=== PATIENT | female | born 1975 | race Caucasian/White ===

== ENCOUNTER 2024-05-07 01:06 | Day surgery (SDC) | payer OTHER, SELFPAY ==
[2024-04-27 10:52] VITALS: BMI 44.2
--- OUTSIDE RECORDS SUMMARY | 2024-05-07 01:09 | XMS_ITS | Clinical Summary ---
Author Organization [facility] Address [address] [place] [address] Care Team Providers Care Residence Director Name Role Phone Sebastián Og Primary Care Provider Allergies No known active allergies Medications semaglutide (Ozempic) 1 mg/dose (2 mg/1.5 mL) pen injector injection Inject 1 mg under the skin every 7 days Active citalopram (CeleXA) 20 mg tablet Take 1 tablet (20 mg total) by mouth daily Active cyclobenzaprine (FLEXERIL) 10 mg tablet Take 1 tablet (10 mg total) by mouth nightly for 10 days 10 tablet 05/01/2024 05/11/19 25 Active lidocaine (LIDODERM) 5 % Place 1 patch on the skin daily Remove & discard patch within 12 hours or as directed by . 30 patch 05/01/2024 05/31/19 25 Active Active Problems Problem Noted Date Diagnosed Date Migraine 12/03/2022 Encounters Date Type Department Care Team Description 05/01/2024 12:26 PM PANTOGRAPH TRANSFERRER - 05/01/2024 2:46 PM PANTOGRAPH TRANSFERRER Emergency [facility] Emergency Department [address] [place] [address] Neck pain (Primary Dx) Discharge Disposition: Discharge to home or self care from Last 3 Months Surgical History Surgery Date Site/Laterality Comments SECTION Medical History Medical History Date Comments Migraine Family History Medical History Relation Name Comments Liver cancer Father COPD Mother Relation Name Status Comments Father Mother Social History Tobacco Use Types Packs/Day Years Used Date Smoking Tobacco: Never Tobacco Cessation:Counseling Given: Not Answered PHQ-2 Answer Date Recorded PHQ-2 Total Score (If total score is 3 or more points, staff should administer the PHQ-9) 0 06/21/2023 Personal Safety Answer Date Recorded Have you ever been in or are you currently in a harmful physical or emotional relationship or is someone making you feel afraid or unsafe? Denies 05/01/2024 Comments No Sex and Gender Information Value Date Recorded Sex Assigned at Not on file Legal Sex Female 4:09 AM PANTOGRAPH TRANSFERRER Gender Identity Not on file Sexual Orientation Not on file Obstetrics History Para Term AB IAB SAB Ectopic Multiple Livin g Live Births 3 1 1 2 1 1 1 Date Outcome GA Total Labor Labor/2nd/3rd Weight Sex Type Anes PTL Kay A1 A5 Name Clin SAB AB 2000 Term 3.544 kg (7 lb 13 oz) F C-Sec tion Living Last Filed Vital Signs Vital Sign Reading Time Taken Comments Blood Pressure 171/87 05/01/2024 2:45 PM PANTOGRAPH TRANSFERRER Pulse 60 05/01/2024 2:45 PM PANTOGRAPH TRANSFERRER Temperature 36.3 ??C (97.3 ??F) 05/01/2024 12:[address] Respiratory Rate 16 05/01/2024 2:45 PM PANTOGRAPH TRANSFERRER Oxygen Saturation 98% 05/01/2024 2:45 PM PANTOGRAPH TRANSFERRER Inhaled Oxygen Concentration - - Weight 113.4 kg (250 lb) 05/01/2024 12:22 PM PANTOGRAPH TRANSFERRER Height 160 cm (5' 3 ) 05/01/2024 12:22 PM PANTOGRAPH TRANSFERRER Body Mass Index 44.29 05/01/2024 12:22 PM PANTOGRAPH TRANSFERRER Plan of Treatment Health Maintenance Due Date Last Done Comments Colon Cancer Screening-Colonoscopy 1973 Hepatitis C Screening 1973 DTaP/Tdap/Td Vaccine (1 - Tdap) 1984 Hepatitis B Screening 12/13/1991 Covid-19 Vaccine (3 - 2023-2 5 season) 2023 08/18/2020, 07/21/2020 Influenza Vaccine (#1) 2023 02/07/2017 Zoster Vaccine (1 of 2) 12/13/2023 Breast Cancer Screening-Mammogram 01/13/2024 01/12/2023 Cervical Cancer Screening 06/20/20242023, 06/21/2023 Depression Screening 06/20/2024 06/21/2023 Regular Well Visit/Exam 18-64 06/20/2024 06/21/2023 Pneumococcal vaccine <65 Aged Out No longer eligible based on patient's age to complete this topic Procedures Procedure Name Priority Date/Time Associated Diagnosis Comments XR SPINE CERVICAL COMPLETE 4 OR 5 VW ED 05/01/2024 1:33 PM PANTOGRAPH TRANSFERRER URINALYSIS AND REFLEX TO MICROSCOPIC AND CULTURE STAT 05/01/2024 1:17 PM PANTOGRAPH TRANSFERRER HIGH RISK HPV DNA DETECTION WITH GENOTYPING Routine 06/21/2023 4:15 PM CDT Well woman exam SCREENING MAMMOGRAM BILATERAL W NORMAN Schedule Routine, Read Routine (OP Routine) 01/12/2023 1:12 PM CDT Screening mammogram, encounter for from Last 3 Months or Most Recently Relevant to Health Maintenance Results * XR Spine Cervical Complete 4 or 5 Views (05/01/2024 1:33 PM PANTOGRAPH TRANSFERRER) Anatomical Region Laterality Modality Spine N/A Computed Radiogr aphy 05/01/2024 1:47 PM PANTOGRAPH TRANSFERRER Narrative 05/01/2024 1:48 PM PANTOGRAPH TRANSFERRER EXAM DESCRIPTION: XR SPINE CERVICAL COMPLETE 4 OR 5 VW REASON FOR STUDY: upper back pain ?? Pt to ED for c/o neck pain, bilateral shoulder pain and upper back pain after moving last weekend. Pt reports pain is worse the last few days and she had multiple episodes of incontinence. ?? Pain down left side of neck ? TECHNIQUE: 5 ??radiographic view(s) of the ??cervical ??spine. COMPARISON: None FINDINGS: There is no definite evidence of acute fracture or subluxation involving the cervical spine. ??There is straightening of the normal cervical lordotic curvature, which may be related to muscle spasms. ??There are large bridging endplate osteophytes noted, which is likely related to diffuse idiopathic skeletal hyperostosis. ??There are multilevel degenerative changes of the cervical spine with disc space narrowing, endplate osteophytosis, and uncovertebral arthropathy, which causes varying degrees of neural foraminal narrowing. ??The visualized paravertebral soft tissues are grossly unremarkable. IMPRESSION: Multilevel cervical spondylosis without definite evidence of acute fracture or subluxation. THIS IS AN ELECTRONICALLY VERIFIED FINAL REPORT 05/01/2024 1:48 PM - Electronically signed by ??Kelechi Castellanos D.O. PS: PS D: ??05/01/2024 1:48 PM T: ??05/01/2024 1:48 PM Report ID: [id number] Reading Location: ??[id number] Procedure Note Kelechi Castellanos, DO - 05/01/2024 EXAM DESCRIPTION: XR SPINE CERVICAL COMPLETE 4 OR 5 VW REASON FOR STUDY: upper back pain Pt to ED for c/o neck pain, bilateral shoulder pain and upper back painafter moving last weekend. Pt reports pain is worse the last few days and shehad multiple episodes of incontinence. Pain down left side of neck TECHNIQUE: 5 radiographic view(s) of the cervical spine. COMPARISON: None FINDINGS: There is no definite evidence of acute fracture or subluxation involvingthe cervical spine. There is straightening of the normal cervical lordotic curvature, which may be related to muscle spasms. There are largebridging endplate osteophytes noted, which is likely related to diffuse idiopathic skeletal hyperostosis. There are multilevel degenerative changes of the cervical spine with disc space narrowing, endplate osteophytosis, and uncovertebral arthropathy, which causes varying degrees of neuralforaminal narrowing. The visualized paravertebral soft tissues are grossly unremarkable. IMPRESSION: Multilevel cervical spondylosis without definite evidence of acutefracture or subluxation. THIS IS AN ELECTRONICALLY VERIFIED FINAL REPORT 05/01/2024 1:48 PM - Electronically signed by Kelechi Castellanos D.O. PS: PS Report ID: [id number] Reading Location: [id number] Jason Puentes NP IMG XR PROCEDURES Final Res ult * (ABNORMAL) Urinalysis reflex to microscopic and culture Urine (05/01/2024 1:17 PM PANTOGRAPH TRANSFERRER) Color, ur Light-[place] Clarity, ur Turbid(A) Clear [facility] (ANNA) Specific gravity, ur 1.018 1.003 - 1.030 [facility] ([facility]) pH, urine 7.0 [facility] ([facility]) Comment: Interpretive Data ? Urine pH is affected by diet, medications, systemic acid-base disturbances, and renal tubular function. ??pH may affect urinary stone formation. ??For example, urine pH below 6.0 may help reduce the tendency for calcium phosphate stones and pH greater than 6.0 may reduce the tendency for uric acid stone formation. Source: [facility] [employer] Current Interpretive Data was last revised on 2017 Protein, ur ql Negative Negative [facility] ([place]) Glucose, ur ql Negative Negative [facility] ([facility]) Ketones, ur Negative Negative [facility] ([place]) Bilirubin, ur Negative Negative [facility] ([place]) Blood, ur Negative Negative [facility] ([place]) Urobilinogen, ur <2.0 <2.0 mg/dL [facility] ([place]) Nitrite, ur Negative Negative [facility] (AN[place]) Leukocyte esterase, ur Negative Negative [facility] ([facility]) UA reflex comment Reflex conditions for microscopic UA and culture not met. [facility] ([facility] Urine 05/01/2024 1:17 PM PANTOGRAPH TRANSFERRER 05/01/2024 1:22 PM PANTOGRAPH TRANSFERRER us Jason Puentes NP LAB MICROBIOLOGY - GENERAL ORDERABLES Final Result [facility] ([facility] [address] [facility] Department [place] [address] * High Risk HPV DNA Detection with Genotyping (Molecular component) (06/21/2023 4:15 PM CDT) HPV HR 16 Not Detected Not Detected HPV HR 18 Not Detected Not Detected [facility] HPV HR Non 16/18 Not Detected Not Detected [facility] Comment: Interpretive Data Nucleic acid amplification for detection of high-risk Human Papilloma virus (HPV) is performed by the [place] Kandace 4800 HPV test, which specifically detects high-risk HPV-16, 18, 31, 33, 35, 39, 45, 51, 52, 56, 58, 59, 66, and 68 genotypes. ??This assay has been approved by the [place] Food and Drug Administration for detection of HPV in cervical specimens collected by a physician using an endocervical brush/spatula or cervical broom and placed in the ThinPrep Pap Test PreservCyt collection containers. ??The performance characteristics of this test have been verified by the [facility]. Correlate with separately reported cytology results, as applicable. Interpretive data last revised 22 Endocervical 06/21/2023 4:15 PM CDT 06/21/2023 7:47 PM CDT Narrative [facility] - 06/25/2023 6:44 PM CDT Clinical history and diagnosis->no abnl Number of vials->1 Testing type->Screening Last menstrual period (date if known)->04/27/23 Menstrual status->Perimenopausal Olga Mayo MD LAB BODY FLUIDS AND STO OLS ORDERABLES Final Result [facility] [address] Department [place] [address] * (ABNORMAL) Screening Mammogram Bilateral W Norman (01/12/2023 1:12 PM CDT) Anatomical Region Laterality Modality Breast Bilateral Mammography 01/28/2023 8:31 AM CDT Impressions 01/28/2023 8:31 AM CDT 2 focal asymmetries and 2 groups of calcifications in the left breast as well as 2 focal asymmetries in the right breast. ??Recommend bilateral diagnostic mammogram and possibly sonogram. BI-RADS: 0 - Additional imaging evaluation is necessary. Electronically signed by: Spring Silva M.D. Narrative 01/28/2023 8:31 AM CDT EXAMINATION: SCREENING MAMMOGRAM BILATERAL W NORMAN ORDERING HEALTHCARE PROVIDER: SELF SCREENING MAMMOGRAM HISTORY: Routine screening mammography. COMPARISON: ??None TECHNIQUE: CC and MLO views of the bilateral breasts were obtained with digital technique using breast tomosynthesis with C view. Computer aided detection was utilized. FINDINGS: DENSITY: There are scattered fibroglandular elements in the bilateral breasts. BREASTS: Left breast: There are focal asymmetry in the upper outer mid left breast, focal asymmetry in the lower inner mid left breast, and 2 groups of calcifications in the upper inner anterior to mid left breast. Right breast: There are focal asymmetry in the upper inner mid right breast and focal asymmetry in the lower outer anterior right breast. us Self Screening Mammogram IMG MAMMO PROCEDURES Fi nal Result from Last 3 Months or Most Recently Relevant to Health Maintenance Insurance IDPA [facility] Care Teams Residence Director Relationship Specialty Start Date End Date Sebastián Og PA [address] [facility] [address] [place] [address] PCP - General Physician Concrete Block Mason 07/01/23
--- OUTSIDE RECORDS SUMMARY | 2024-05-07 01:09 | XMS_ITS | CONTINUITY OF CARE DOCUMENT ---
Author Name caseymonica caseymonica Address Unknown Organization [facility] Address [address] [place] [address] Phone [phone] Care Team Providers Care Convolute Tube Winder Name Role Phone Marissa Jacinto MD Unavailable [phone] SCOUT BASSETT Unavailable SCOUT BASSETT Unavailable PROBLEMS Condition Status Date Provider Notes Cardiovascular screening completed - Marissa Jacinto MD Family History of CVA or Stroke: active ? Maxi Jacinto MD Obesity nl tsh , elevated tg active Marissa Jacinto MD FAMILY HISTORY OF HEART DISEASE active Lloyd Jacinto MD CHEST PAINnl echo and stress nuc 08/24 active Marissa Jacinto MD Edema-BLE active Marissa Jacinto MD Snoring mild arnel active Marissa Jacinto MD Venous insufficiency active Marissa Jacinto MD ENCOUNTERS Date Type Provider Location Encounter Diag nosis - In-person encounter Office Visit Marissa Jacinto MD [place] [facility] Cardiovascular screeningObesity nl tsh , elevated tgCHEST PAINnl echo and stress nuc 08/24Snoring mild osaVenous insufficiency - In-person encounter Office Visit Marissa Jacinto MD [place] [facility] Family History of CVA or Stroke:Obesity nl tsh , elevated tgFAMILY HISTORY OF HEART DISEASECHEST PAINnl echo and stress nuc 08/24Edema-BLESnoring mild arnel VITAL SIGNS Date Observation Value Provider Body Mass Index (Ratio) 47.47 kg/m2 Lloyd Jacinto MD blood pressure, cuff size regular Cy sandro Iyer blood pressure, diastolic 80 mm[Hg] Cy sandro Iyer blood pressure, systolic 130 mm[Hg] Shannen Iyer oxygen saturation, oximetry 97 % Gracy Iyer respiratory rate E&M 18 /min Gracyanh Iyer pulse rate 96 /min Gracy ames weight E&M 268 [lb_av] Gracy ames height E&M 63 [in_i] Gracy ames Body Mass Index (Ratio) 48.00 kg/m2 Lloyd Jacinto MD blood pressure, diastolic 84 mm[Hg] [facility], systolic 118 mm[Hg] Kenya levin [place] oxygen saturation, oximetry 98 % [facility] respiratory rate E&M 16 /min [facility] pulse rate 88 /min [facility] weight E&M 271 [lb_av] [facility] blood pressure, resting No [facility] height E&M 63 [in_i] [facility] ALLERGIES No Known Drug Allergies RESULTS Date Observation Value Provider Reference Range Interpretation Location 4 thyroid stimulating hormone, serum 1.540 u[IU]/mL [facility] 0.450-4.500 4 alanine aminotransferase (SGPT), serum 26 1/L [facility] 0-32 4 aspartate aminotransferase (SGOT), serum 21 1/L [facility] 0-40 4 alkaline phosphatase, serum 83 1/L [facility] 39-117 4 bilirubin, serum, total 0.4 mg/dL [facility] 0.0-1.2 4 albumin/globulin ratio, serum 1.4 [facility] 1.2-2.2 4 globulin, serum 3.0 [facility] 1.5-4.5 4 albumin, serum 4.3 g/dL [facility] 3.5-5.5 4 protein, total, serum 7.3 g/dL [facility] 6.0-8.5 4 calcium, serum 9.2 mg/dL [facility] 8.7-10.2 4 carbon dioxide, venous blood 25 mmol/L [facility] 20-29 4 chloride, serum 102 mmol/L [facility] 96-106 4 potassium, serum 4.2 mmol/L [facility] 3.5-5.2 4 sodium, serum 142 mmol/L [facility] [phone]/05/2 4 urea nitrogen/creatinine ratio, serum 10 [facility] 9-23 4 eGFR if 83 mL/min/{1 .73_m2} [facility] >59 4 eGFR if not 72 mL/min/{1 .73_m2} [facility] >59 4 creatinine, serum 0.96 mg/dL [facility] 0.57-1.00 4 urea nitrogen, blood 10 mg/dL [facility] 6-24 4 blood glucose, random 82 mg/dL [facility] 65-99 4 hemoglobin A1C, blood, as % of total hemoglobin 5.5 % [facility] 4.8-5.6 4 lipoprotein, beta, serum, point, quantitative, calculated 73 mg/dL [facility] 0-99 4 very low density lipoproteins 45 mg/dL [facility] 5-40 High 4 HDL cholesterol, serum 41 mg/dL [facility] >39 4 triglyceride, serum, random 223 mg/dL [facility] 0-149 High 4 cholesterol, serum 159 mg/dL [facility] [phone]/05/2 4 basophil count, absolute 0.1 x10E3/uL [facility] 0.0-0.2 4 Eosinophil Absolute Count 0.4 X10E3/UL [facility] 0.0-0.4 4 monocyte count, blood, automated 0.5 X10E3/UL [facility] 0.1-0.9 4 lymphocyte count, blood, automated 2.8 X10E3/UL [facility] 0.7-3.1 4 Absolute Neutrophils 5.0 X10E3/UL [facility] 1.4-7.0 4 basophils as percent of blood leukocytes 1 % [facility] Not Estab. 4 eosinophils as percent of blood leukocytes 5 % [facility] Not Estab. 4 monocytes as percent of blood leukocytes 6 % [facility] Not Estab. 4 lymphocytes as percent of blood leukocytes 31 % [facility] Not Estab. 4 neutrophils as percent of blood leukocytes 57 % [facility] Not Estab. 4 platelet count 281 X10E3/UL [facility] [phone]/05/2 4 red blood cell distribution width 15.2 % [facility] 12.3-15.4 4 mean corpuscular hemoglobin concentration, RBC 32.3 G/DL [facility] 31.5-35.7 4 mean corpuscular hemoglobin, RBC 25.3 pg [facility] 26.6-33.0 Low 4 mean corpuscular volume, RBC 78 fL [facility] 79-97 Low 4 hematocrit, blood 38.7 % [facility] 34.0-46.6 4 hemoglobin, blood 12.5 g/dL [facility] 11.1-15.9 4 erythrocyte (RBC) count 4.95 X10E6/UL [facility] 3.77-5.28 4 leukocyte count, blood 8.9 X10E3/UL [facility] 3.4-10.8 HISTORY OF MEDICATION USE No Known Medication SOCIAL HISTORY Date Observation Value Provider social history reviewed E&M revi ewed - no changes required Marissa Jacinto MD smoking status Never smoker Gracy Sumit goldman social history E&M S moking History: Hernan akbar has never smoked. Marissa Jacinto MD social history reviewed E&M revi ewed - no changes required Marissa Jacinto MD number of grandchildren Marissa Jacinto MD Neymar Mcclure smoking status Never smoker Ismael washington FAMILY HISTORY Family Member Condition Father Family History of Hy pertension: Father Family History of Hy perlipidemia: Father Family History of Di abetes: Father Family History of CV A or Stroke: Father Family History of Co ngestive Heart Failure: Father Family History of Co ronary Artery Disease: Mother Family History of Co ronary Artery Disease: INSURANCE PROVIDERS Payer name Policy type / Coverage type [place] red republican ID [employer] Other [id number] HEALTHCARE AND FAMILY SERVICES Medicaid 1 [id number] ADVANCE DIRECTIVES Name Date DISCUSSED - NO DECISION MADE TREATMENT PLAN Date Name Performer Cardiology follow up Marissa hoyos MD Cardiology follow up Marissa hoyos MD Cardiology follow up Marissa hoyos MD Cardiology follow up Marissa hoyos MD Cardiology Marissa Jacinto MD Cardiology Marissa Jacinto MD Cardiology Marissa Jacinto MD Cardiology Marissa Jacinto MD Cardiology Marissa Jacinto MD Date Name TSH, 3RD GENERATION W/REFLEX TO FT4 LIPID PANEL HEMOGLOBIN A1c CBC (H/H, RBC, INDIC ES, WBC, PLT) BASIC METABOLIC PANE L W/EGFR COMPREHENSIVE METABO LIC PANEL, W/EGFR Venous Doppler Bilat eral LE - Reflux Complete Echo Stress Exercise Card iolite Sleep Study Home HISTORY OF PROCEDURES Procedure Date Procedure Name Provider Procedure Notes S tatus Cardiolite, 2 units Marissa Jacinto MD completed SPECT Images Dario Garcia MD com pleted Stress EKG Candido Pennington MD completed EKG Marissa Jacinto MD completed
--- OUTSIDE RECORDS SUMMARY | 2024-05-07 01:09 | XMS_ITS | Referral Summary ---
Author Organization [facility] Address [address] [place] [address] Care Team Providers Care Net Making Supervisor Name Role Phone Sebastián Og Primary Care Provider Encounters Date Type Department Care Team Description 05/01/2024 12:26 PM CONSTRUCTION REPRESENTATIVE - 05/01/2024 2:46 PM CONSTRUCTION REPRESENTATIVE Emergency [facility] Emergency Department [address] [place] [address] Neck pain (Primary Dx) Discharge Disposition: Discharge to home or self care from Last 3 Months Allergies No known active allergies Medications semaglutide [...] within 12 hours or as directed by MD. 30 patch 05/01/2024 05/31/19 25 Active Active Problems Problem Noted Date Diagnosed Date Migraine 12/03/2022 Social History Tobacco Use Types Packs/Day Years [...] on file Legal Sex Female 4:09 AM CONSTRUCTION REPRESENTATIVE Gender Identity Not on file Sexual Orientation Not on file Last Filed Vital Signs Vital Sign Reading Time Taken Comments Blood Pressure 171/87 05/01/2024 2:45 PM CONSTRUCTION REPRESENTATIVE Pulse 60 05/01/2024 2:45 PM CONSTRUCTION REPRESENTATIVE Temperature 36.3 ??C (97.3 ??F) 05/01/2024 12:[address] Respiratory Rate 16 05/01/2024 2:45 PM CONSTRUCTION REPRESENTATIVE Oxygen Saturation 98% 05/01/2024 2:45 PM CONSTRUCTION REPRESENTATIVE Inhaled Oxygen Concentration - - Weight 113.4 kg (250 lb) 05/01/2024 12:22 PM CONSTRUCTION REPRESENTATIVE Height 160 cm (5' 3 ) 05/01/2024 12:22 PM CONSTRUCTION REPRESENTATIVE Body Mass Index 44.29 05/01/2024 12:22 PM CONSTRUCTION REPRESENTATIVE Plan of Treatment Not on file Procedures Procedure Name Priority Date/Time Associated Diagnosis Comments XR SPINE CERVICAL COMPLETE 4 OR 5 VW ED 05/01/2024 1:33 PM CONSTRUCTION REPRESENTATIVE URINALYSIS AND REFLEX TO MICROSCOPIC AND CULTURE STAT 05/01/2024 1:17 PM CONSTRUCTION REPRESENTATIVE HIGH RISK HPV DNA DETECTION WITH GENOTYPING Routine 06/21/2023 4:15 PM CDT Well woman exam SCREENING MAMMOGRAM BILATERAL W NORMAN Schedule Routine, Read Routine (OP Routine) 01/12/2023 1:12 PM CDT Screening mammogram, encounter for from Last 3 Months or Most Recently Relevant to Health Maintenance Results * XR Spine Cervical Complete 4 or 5 Views (05/01/2024 1:33 PM CONSTRUCTION REPRESENTATIVE) Anatomical Region Laterality Modality Spine N/A Computed Radiogr aphy 05/01/2024 1:47 PM CONSTRUCTION REPRESENTATIVE Narrative 05/01/2024 1:48 PM CONSTRUCTION REPRESENTATIVE EXAM DESCRIPTION: XR SPINE CERVICAL COMPLETE 4 [...] PM T: ??05/01/2024 1:48 PM Report ID: [id number] Reading Location: ??[id number] Procedure Note Kelechi Castellanos, DO - 05/01/2024 [...] Kelechi Castellanos D.O. PS: PS Report ID: [id number] Reading Location: [place] [address] Jason Puentes NP IMG XR PROCEDURES Final Res ult * (ABNORMAL) Urinalysis reflex to microscopic and culture Urine (05/01/2024 1:17 PM CONSTRUCTION REPRESENTATIVE) Color, ur Light-[place] Clarity, ur Turbid(A) Clear CERNER A [facility] [...] tendency for uric acid stone formation. Source: [facility] [employer] Current Interpretive Data was last revised on [...] for microscopic UA and culture not met. [facility] ([facility]NA) Urine 05/01/2024 1:17 PM CONSTRUCTION REPRESENTATIVE 05/01/2024 1:22 PM CONSTRUCTION REPRESENTATIVE us Jason Puentes NP LAB MICROBIOLOGY - GENERAL ORDERABLES Final Result [facility] (ANNA) [address] [facility] Department [place] [address] * High Risk HPV DNA Detection with Genotyping (Molecular component) (06/21/2023 4:15 PM CDT) HPV HR 16 Not Detected Not Detected HPV HR 18 Not Detected Not Detected [facility] HPV HR Non 16/18 Not Detected Not Detected [facility] Comment: Interpretive Data Nucleic acid amplification for [...] this test have been verified by the [facility]. Correlate with separately reported cytology results, as applicable. Interpretive data last revised 22 Endocervical 06/21/2023 4:15 PM CDT 06/21/2023 7:47 PM CDT Narrative [facility] - 06/25/2023 6:44 PM CDT Clinical history and diagnosis->no abnl Number of vials->1 Testing type->Screening Last menstrual period (date if known)->04/27/23 Menstrual status->Perimenopausal us Olga Mayo MD LAB BODY FLUIDS AND STO OLS ORDERABLES Final Result [facility] [address] Department [place] [address] * (ABNORMAL) Screening Mammogram Bilateral W Norman [...] Recently Relevant to Health Maintenance Insurance IDPA [facility] [place] [id number] Care Teams Net Making Supervisor Relationship Specialty Start Date End Date Sebastián Og PA [address] [address] PCP - General Physician Scalping Machine Operator 07/01/23
[2024-05-07 12:28] VITALS: BP 161/87; PULSE 74; RESP 16; TEMP 36.3; O2SAT 97; BMI 48.3
--- NOTE | 2024-05-07 12:29 | P.PNAN_ITS ---
Anes - Initial Pre Proc Eval Procedure: Operation Date: 05/07/24 14:00 Proposed Procedures p Screening Colonoscopy - Lele Gallagher MD Date/Time: 05/07/24 12:29 Surgeon: Lele Gallagher MD Pre Op Diagnosis: screening for malignant neoplasm of colon Patient Data Age: 48 Gender: F Height: 1.6 m Weight: 113.4 kg Allergies Allergy/AdvReac Type Severity Reaction Status Date / Time bupropion (From Contrave) AdvReac Intermediate Vomiting Verified 05/07/24 12:26 clavulanic acid (From AdvReac Intermediate Vomiting Verified 05/07/24 12:26 Augmentin) naltrexone (From Contrave) AdvReac Intermediate Vomiting Verified 05/07/24 12:26 amoxicillin (From Augmentin) AdvReac Mild Gastrointestinal Verified 05/07/24 12:26 Upset Home Medications ?Medication ?Instructions ?Recorded ?Confirmed ?Type citalopram 20 mg tablet 20 mg PO DAILY #90 tabs 02/18/24 05/07/24 Rx Patient hx anesthesia problems: none Family hx anesthesia problems: none Results Review: All pre-operative results and documents have been reviewed as part of the pre- operative evaluation. [facility] Past Medical History Medical History Anemia Anxiety Migraine Surgical History Surgical History delivery delivered 1999 History of placement of ear tubes Hx of dilation and curettage 2011 Family History Family History Father Diabetes mellitus Hypertension Heart disease Cerebrovascular accident Liver cancer Mother Depression Alcoholism Social History Social History (Updated 02/18/24 @ 15:10 by JONA Pal) Smoking status: Never smoker Second hand tobacco smoke exposure: No Alcohol intake: never Substance use: never Substance use type: does not use Do You Feel Safe in your Home?: Yes Lack of Transportation: No Lack of Food: Never True Current Housing: I Have Housing Concerned About Future Housing: No Difficulty Paying Gas/Electric Bills: No Difficulty Paying for Meds: No Currently Unemployed: No Education: Associate Degree Difficulty w/ Childcare or Family Care: No Living arrangements: with family Occupation/Education: occupation 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 Informed Consent: The patient's anesthetic plan and its attendant risks and benefits were discussed with the patient/family/POA. Questions were solicited and answers provided to the satisfaction of the patient/family/POA.
[2024-05-07] MEDS: LACTATED RINGERS 1,000 ML 150 ML IV CONT (12:39)
--- NOTE | 2024-05-07 12:52 | P.HP_ITS ---
History of Present Illness History of Present Illness Consent: Risks, benefits, and alternatives have been discussed and questions answered. Patient agrees to proceed with procedure. Chief complaint: screening for malignant neoplasm of colon Narrative: Shawanda Benson is a 48 year old female here for first screening colonoscopy Review of Systems Review of Systems: All systems reviewed & are unremarkable except as noted in HPI and below PMFSH Past Medical History Medical History Anemia Anxiety Migraine Surgical History Surgical History delivery delivered 1999 History of placement of ear tubes Hx of dilation and curettage 2011 Family History Family History Father Diabetes mellitus Hypertension Heart disease Cerebrovascular accident Liver cancer Mother Depression Alcoholism Social History Social History (Updated 02/18/24 @ 15:10 by JONA Pal) Smoking status: Never smoker Second hand tobacco smoke exposure: No Alcohol intake: never Substance use: never Substance use type: does not use Do You Feel Safe in your Home?: Yes Lack of Transportation: No Lack of Food: Never True Current Housing: I Have Housing Concerned About Future Housing: No Difficulty Paying Gas/Electric Bills: No Difficulty Paying for Meds: No Currently Unemployed: No Education: Associate Degree Difficulty w/ Childcare or Family Care: No Living arrangements: with family Occupation/Education: occupation 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 Gender identity (if verbalized by the patient): Female Spiritual care concerns: No Meds Home Medications and Allergies Home Medications ?Medication ?Instructions ?Recorded ?Confirmed ?Type citalopram 20 mg tablet 20 mg PO DAILY #90 tabs 02/18/24 05/07/24 Rx Allergies Allergy/AdvReac Type Severity Reaction Status Date / Time bupropion (From Contrave) AdvReac Intermediate Vomiting Verified 05/07/24 12:26 clavulanic acid (From AdvReac Intermediate Vomiting Verified 05/07/24 12:26 Augmentin) naltrexone (From Contrave) AdvReac Intermediate Vomiting Verified 05/07/24 12:26 amoxicillin (From Augmentin) AdvReac Mild Gastrointestinal Verified 05/07/24 12:26 Upset Vital Signs Vital Signs - 24 hr 05/07/24 12:28 Temperature 97.4 F L Pulse Rate 74 Respiratory Rate 16 Blood Pressure 161/87 H Pulse Oximetry 97 Oxygen Delivery Room Air Exam Const: General: comfortable and no acute distress HENMT: Face/Nose/Sinus: Normal nares present Eyes: General: appearance normal, both eyes and all related structures Neck: Neck: no JVD Resp: Auscultation: clear to auscultation bilaterally Cardio: Rate: regular rate Rhythm: regular rhythm GI: Inspection: non-distended GI Palp: Yes Soft to palpation Skin: General skin exam: normal color Neuro: General: gait normal Speech: normal speech Extrem: General: normal to inspection Psych: Mental Status: mental status grossly normal Assessment and Plan Assessment and plan (1) Screening for colon cancer: Code(s): Z12.11 - Encounter for screening for malignant neoplasm of colon Status: Acute Assessment and Plan: colonoscopy
[2024-05-07 13:09] VITALS: BP 152/96; PULSE 69; RESP 16; O2SAT 100
[2024-05-07 13:11] LABS: BEDSIDEPREGUCG Negative (Negative)
[2024-05-07 13:19] VITALS: BP 139/97; PULSE 66; RESP 11; O2SAT 99
[2024-05-07 13:29] VITALS: BP 145/79; PULSE 68; RESP 16; O2SAT 99
== END 2024-05-07 13:40 | disposition home or self-care (01) ==
PROVIDERS: PCP Nurse Practitioner; Referring Provider Nurse Practitioner; Visit Provider Internal Medicine Gastroenterology
PROC: 0DJD8ZZ Inspection of Lower Intestinal Tract, Via Natural or Artificial Opening Endoscopic (ICD-10-PCS; CPT 45378; principal; 2024-05-07 14:00)
DX: Z12.11 Encounter for screening for malignant neoplasm of colon (principal); D12.0 Benign neoplasm of cecum; D12.3 Benign neoplasm of transverse colon; K62.1 Rectal polyp; D64.9 Anemia, unspecified; F41.9 Anxiety disorder, unspecified; E66.01 Morbid (severe) obesity due to excess calories; Z68.42 Body mass index [BMI] 45.0-49.9, adult; Z98.890 Other specified postprocedural states; Z80.0 Family history of malignant neoplasm of digestive organs; Z82.49 Family history of ischemic heart disease and other diseases of the circulatory system
CPT/HCPCS: 45385; 88305; J2704; J7120